=== PATIENT | male | born 1970 | race Caucasian/White ===

== ENCOUNTER → 2019-10-04 | Outpatient (CLI) | payer BC ==
[~2019-10-04] MED LIST: cialis PO; losartan PO; ozempic INJ; prilosec PO; synjardy PO
[2019-10-04 15:19] LABS: ALANINE AMINOTRANSFERASE 58 U/L (12-78); ALBUMIN 3.9 g/dL (3.4-5.0); ANION GAP 7 mmol/L (5-15); CALCIUM 9.2 mg/dL (8.5-10.1); CHLORIDE 111 mmol/L (98-107); CREATININE 1.05 mg/dL (0.7-1.3)
[2019-10-04 15:21] LABS: ALKALINE PHOSPHATASE 74 U/L (45-117); BILIRUBIN,TOTAL 0.2 mg/dL (0.2-1.0); TOTAL PROTEIN 7.6 g/dL (6.4-8.2)
== END | disposition home or self-care (01) ==
LOC: STAR 14:09
PROVIDERS: ATTEND Surgery Surgery of the Hand
DX: Z01.818 Encounter for other preprocedural examination (principal); G56.22 Lesion of ulnar nerve, left upper limb; G56.00 Carpal tunnel syndrome, unspecified upper limb
CPT/HCPCS: 36415; 80053; 93005

== ENCOUNTER 2019-10-09 11:31 | Day surgery (SDC) | payer BC, OTHER ==
[~2019-10-09] VITALS: Ht 172.7 cm; Wt 92.4 kg
[2019-10-09] MEDS ORDERED: LIDOCAINE 1%, 20ML ONE (11:48)
[2019-10-09] MEDS ORDERED: BUPIVACAINE/PF 0.5% ONE (11:48)
[2019-10-09] MEDS ORDERED: LACTATED RINGERS 1,000 ML IV SCH (11:55)
[2019-10-09] MEDS ORDERED: CHLORHEXIDINE 15 ML UDC MM ONE (12:00)
[2019-10-09] MEDS ORDERED: MELA5TAB14 PO (12:14)
[2019-10-09] MEDS ORDERED: FEXO1TAB29 PO (12:14)
[2019-10-09] MEDS ORDERED: FLUT9.9S NAS (12:14)
[2019-10-09] MEDS ORDERED: EMPA1TAB9 PO (12:14)
[2019-10-09] MEDS ORDERED: MULT-297 PO (12:14)
[2019-10-09] MEDS ORDERED: [UNRECOGNIZED DRUG - OTHER] PO (12:14)
[2019-10-09] MEDS ORDERED: ZINC PO (12:14)
[2019-10-09] MEDS ORDERED: ROSU5TAB PO (12:14)
[2019-10-09] MEDS ORDERED: LOSA100T14 PO (12:14)
[2019-10-09] MEDS ORDERED: VITAMIN D3 PO (12:14)
[2019-10-09] MEDS ORDERED: OMEP20TA62 PO (12:14)
[2019-10-09] MEDS ORDERED: TADA5TAB2 PO (12:14)
[2019-10-09] MEDS ORDERED: TAMS-11 PO (12:14)
[2019-10-09] MEDS ORDERED: VITAMIN B12 PO (12:14)
[2019-10-09] MEDS ORDERED: CHLORHEXIDINE 15 ML UDC ONE (12:20)
[2019-10-09] MEDS ORDERED: MIDAZOLAM 1 MG/ML, 2ML ONE (13:12)
[2019-10-09] MEDS ORDERED: FENTANYL PF 250 MCG/5ML ONE (13:12)
[2019-10-09] MEDS ORDERED: DEXAMETHASONE 4 MG/ML, 1ML ONE (13:14)
[2019-10-09] MEDS ORDERED: CEFAZOLIN 1,000 MG ONE (13:15)
[2019-10-09] MEDS ORDERED: OXYcodone/APAP 5/325MG TABLET PO PRN (13:30)
[2019-10-09] MEDS ORDERED: FENTANYL PF 100 MCG/2ML ONE ×2 (13:59→14:27)
[2019-10-09] MEDS ORDERED: ALBUTEROL SULFATE 2.5 MG/3 ML NPPB PRN (14:00)
[2019-10-09] MEDS ORDERED: MIDAZOLAM 1 MG/ML, 2ML IV PRN (14:00)
[2019-10-09] MEDS ORDERED: OXYcodone 5 MG/5 ML ORAL.SOL UDC PO PRN (14:00)
[2019-10-09] MEDS ORDERED: MEPERIDINE/PF 25MG/0.5ML IVPush PRN (14:00)
[2019-10-09] MEDS ORDERED: DIAZEPAM 5 MG/ML, 2ML IVPush PRN (14:00)
[2019-10-09] MEDS ORDERED: hydrALAzine 20 MG/ML, 1ML IV PRN (14:00)
[2019-10-09] MEDS ORDERED: HYDROmorphone 1 MG/ML, 1ML INJ IVPush PRN (14:00)
[2019-10-09] MEDS ORDERED: LABETALOL 5MG/ML, 20ML IV PRN (14:00)
[2019-10-09] MEDS ORDERED: DIPHENHYDRAMINE 50 MG/ML, 1ML IVPush PRN (14:00)
[2019-10-09] MEDS ORDERED: PROMETHAZINE 25 MG/ML, 1ML IVPush PRN (14:00)
[2019-10-09] MEDS ORDERED: EPHEDRINE 50 MG/ML, 1ML IVPush PRN (14:00)
[2019-10-09] MEDS ORDERED: FENTANYL PF 100 MCG/2ML IV PRN (14:00)
[2019-10-09] MEDS ORDERED: ONDANSETRON 2MG/ML, 2ML IVPush PRN (14:00)
[2019-10-09] MEDS ORDERED: ACETAMINOPHEN 325 MG TABLET PO PRN (14:00)
[2019-10-09] MEDS ORDERED: PROMETHAZINE 12.5 MG SUPP PR PRN (14:00)
[2019-10-09] MEDS ORDERED: PROPOFOL 10 MG/ML, 20ML ONE (14:30)
[2019-10-09] MEDS ORDERED: SUCCINYLCHOLINE 20 MG/ML, 10ML ONE (14:30)
[2019-10-09] MEDS ORDERED: ONDANSETRON 2MG/ML, 2ML ONE ×2 (14:30)
[2019-10-09] MEDS ORDERED: ROCURONIUM 10MG/ML,5ML ONE (14:30)
[2019-10-09] MEDS ORDERED: MEPERIDINE/PF 25MG/ML,1ML ONE (14:46)
== END 2019-10-09 16:30 | disposition home or self-care (01) ==
LOC: OUT 11:31
PROVIDERS: ATTEND Surgery Surgery of the Hand
DX: G56.01 Carpal tunnel syndrome, right upper limb (principal); G56.21 Lesion of ulnar nerve, right upper limb; M77.11 Lateral epicondylitis, right elbow; E11.9 Type 2 diabetes mellitus without complications; I10 Essential (primary) hypertension; K21.9 Gastro-esophageal reflux disease without esophagitis; M19.90 Unspecified osteoarthritis, unspecified site; E66.9 Obesity, unspecified; Z68.29 Body mass index [BMI] 29.0-29.9, adult; Z79.1 Long term (current) use of non-steroidal anti-inflammatories (NSAID); Z79.891 Long term (current) use of opiate analgesic; Z79.899 Other long term (current) drug therapy; Z98.890 Other specified postprocedural states; Z82.61 Family history of arthritis
CPT/HCPCS: 64718; 64721; 82962; J0330; J0690; J1100; J2250; J2405; J2704; J3010; J7120; U0001